=== PATIENT | female | born 1980 | race Caucasian/White ===

== ENCOUNTER → 2016-11-27 | Outpatient (CLI) | payer OTHER ==
[~2016-11-27] MED LIST: /ONDA4TA PO; DOCU10ELUD PO; IBUP80TA PO; PERCOCET PO
--- NOTE | 2016-11-27 19:14 | REP ---
LUMBAR SPINE COMPLETE: 11/27/2016: Clinical history: Low back pain. Findings: There are no prior pertinent studies. Five views are provided. No degenerative disc changes with disc space narrowing and vacuum phenomenon at L5-S1. There is facet arthropathy at that level as well. No spondylolysis is seen. There is slight disc space narrowing and L4-5 with disc space heights intact. No compression deformity of the spine. The normal lordosis is intact. The SI joints, sacral ala and foramina intact. Impression: 1. Degenerative disc and facet changes at L5-S1 without compression deformity, spondylolysis or other acute finding. Signed by Tyrel Bansal MD 11/28/2016 08:31 A
== END ==
LOC: M LRY 16:08
PROVIDERS: ATTEND Family Medicine
DX: M54.5 Low back pain (principal)
CPT/HCPCS: 72110; G0463

== ENCOUNTER → 2017-03-26 | Outpatient (REF) | payer OTHER | LOC: M LAB REF 17:26 | PROVIDERS: ATTEND Obstetrics & Gynecology | DX: Z12.4 Encounter for screening for malignant neoplasm of cervix (principal) ==